=== PATIENT | female | born 1985 | race Caucasian/White ===

== ENCOUNTER 2017-12-10 16:06 | Emergency (ER) | payer BC ==
[~2017-12-10] VITALS: Ht 172.7 cm; Wt 68.2 kg
[2017-12-10 16:53] LABS: EOS # 0.1 (0.04-0.40); EOS % 0.6 % (1.0-5.0); HEMATOCRIT 39.4 % (37.0-47.0); HEMOGLOBIN 13.5 g/dL (12.5-16.0); MEAN CELL VOLUME 90 fl (78-100); MEAN CORPUSCULAR HEMOGLOBIN 31 pg (27-31); MEAN CORPUSCULAR HGB CONC 34 g/dL (33-37); MEAN PLATELET VOLUME 9.6 fl (7.4-10.4); MONO # 0.3 (0.20-0.80); NEU # 5.6 (1.40-6.50); PLATELET COUNT 268 K/mm3 (130-400); RED CELL DISTRIBUTION WIDTH 12.3 % (11.5-14.5)
[2017-12-10 17:02] LABS: BUN/CREATININE RATIO 20.7 (6.0-26.0); CALCIUM 9.6 mg/dL (8.4-10.2)
[2017-12-10] MEDS ORDERED: ZOFRAN ODT4 MG PO (20:08)
[2017-12-10 20:17] VITALS: BP 110/64
== END 2017-12-10 20:17 | disposition home or self-care (01) ==
LOC: ED 16:06
PROVIDERS: Family Medicine
DX: R11.2 Nausea with vomiting, unspecified (principal); R42 Dizziness and giddiness
CPT/HCPCS: J2765; J7030

== ENCOUNTER → 2018-04-10 | Outpatient (CLI) | payer BC ==
[~2018-04-10] MED LIST: ZOFRAN ODT4 MG PO
== END ==
LOC: LAB 18:50
DX: S90.861A Insect bite (nonvenomous), right foot, initial encounter (principal); R53.81 Other malaise; R52 Pain, unspecified